=== PATIENT | male | born 1945 | race Caucasian/White ===

== ENCOUNTER 2024-01-15 14:23 | Emergency (ER) | payer MEDICARE, BC ==
[2024-01-15 16:41] LABS: #Basophils 0.03 10x3/uL (0.0-0.2); #Eosinophils 0.21 10x3/uL (0.0-0.5); #Monocytes 1.05 10x3/uL (0.0-1.1); #Neutrophils 8.58 10x3/uL (1.5-8.4); %Basophils 0.3 % (0.0-2.0); %Eosinophils 1.8 % (0.0-6.0); %Lymphocytes 15.9 % (18.0-47.0); %Monocytes 8.9 % (0.0-10.0); %Neutrophils 72.8 % (40.0-75.0); Hematocrit 42.5 % (38.8-50.0); Hemoglobin 14.5 g/dL (13.5-17.5); Mean Corpuscular HGB CONC 34.1 g/dL (32.0-36.0); Mean Corpuscular Hemoglobin 30.8 pg (27.0-33.0); Mean Corpuscular Volume 90.2 fL (81.2-95.1); Mean Platelet Volume 9.6 fL (7.4-10.4); Platelet Count 251 10x3/uL (150-450); RBC Distribution Width 12.3 % (11.5-14.5); Red Blood Cell (RBC) Count 4.71 10x6/uL (4.32-5.72); White Blood Cell (WBC) Count 11.8 10x3/uL (3.5-10.5)
[2024-01-15 17:00] LABS: Troponin I 0.056 ng/mL (< 0.028)
[2024-01-15 17:01] LABS: ALT (SGPT) 22 U/L (8-55); AST (SGOT) 22 U/L (5-34); Albumin 3.8 g/dL (3.4-4.8); Alkaline Phosphatase 130 U/L (40-110); Anion Gap 16 mmol/L (10-20); BUN (Urea Nitrogen) 20 mg/dL (8.4-25.7); Bilirubin, Total 0.8 mg/dL (0.2-1.2); Calc. Creatinine Clearance 0 mL/min (70-130); Calcium 9.1 mg/dL (7.8-10.44); Carbon Dioxide 22 mmol/L (23-31); Chloride 102 mmol/L (98-107); Estimated GFR 63; Globulin 3.3 g/dL (2.4-3.5); Glucose 114 mg/dL (83-110); Protein, Total 7.1 g/dL (5.8-8.1); Sodium 135 mmol/L (136-145)
[2024-01-15] MEDS ORDERED: Ventolin HFA Inhaler 60 PUFF INHALER ONE (17:35)
[2024-01-15 18:49] LABS: Troponin I 0.058 ng/mL (< 0.028)
== END 2024-01-15 19:17 | disposition home or self-care (01) ==
LOC: CSHERS 14:23
DX: J18.9 Pneumonia, unspecified organism (principal); R79.89 Other specified abnormal findings of blood chemistry; I10 Essential (primary) hypertension; I48.91 Unspecified atrial fibrillation; Z79.899 Other long term (current) drug therapy
CPT/HCPCS: 36415; 71046; 80053; 83880; 84484; 85025; 87428; 93005; 94664; 94760

== ENCOUNTER 2024-02-12 11:41 | Emergency (ER) | payer MEDICARE, BC ==
[2024-02-12] MEDS ORDERED: Ipratropium/Albuterol 3 ML NEB ONE (12:25)
== END 2024-02-12 13:10 | disposition home or self-care (01) ==
LOC: CSHERS 11:41
DX: R05.9 Cough, unspecified (principal); R50.9 Fever, unspecified; I10 Essential (primary) hypertension
CPT/HCPCS: 71045; 87428; J7620